=== PATIENT | male | born 1980 | race Two or more races ===

== ENCOUNTER 2024-12-24 11:11 | Emergency (ER) | payer MEDICAID, SELFPAY ==
[2024-12-24 11:12] VITALS: BMI 30.4
[2024-12-24 11:34] VITALS: BP 166/81; PULSE 99; RESP 17; TEMP 36.8; O2SAT 96
--- NOTE | 2024-12-24 11:34 | XR_ITS ---
Examination: CT abdomen with intravenous contrast CT pelvis with intravenous contrast 2-D coronal reconstructions 2-D sagittal reconstructions Date and time of exam: December 24, 2024, 1434 hours INDICATIONS: Onset rectal pain today. CTDI: vol (mGy) 12.8 DLP: (mGycm) 867 Technique: Multiple axial sections of the abdomen and pelvis have been obtained. 64 slice high-resolution scanner used. 3 mm axial sections have been obtained, post intravenous injection 60 cc [id number] 2-D sagittal, coronal reconstructions obtained. Low dose protocols were performed. One or more of the following dose reduction techniques were used; automated exposure control, adjustment of the mA and/or KV according to patient size, use of iterative reconstruction technique. Findings: No focal liver or splenic lesions No gallstones No pancreatic or adrenal mass No renal or ureteral calculi, no hydronephrosis Aorta normal size Normal appendix No bowel obstruction or diverticulitis Severe thickening of the rectal wall and severe inflammatory change surrounding the rectum No prostatomegaly Contracted urinary bladder IMPRESSION: Pronounced thickening of the rectal wall and severe inflammatory change surrounding the rectum most consistent with proctitis but clinical correlation and follow-up advised, including direct inspection of the rectum
--- NOTE | 2024-12-24 11:35 | PD.EDADULT ---
ED General RME/HPI General Chief complaint: General Adult/Misc Complain Stated complaint: CONSTIPATION X2 DAYS; RECTAL PAIN Time Seen by Provider: 12/24/24 11:24 Arrival date/time: 12/24/24 11:11 44-year-old male patient with no past medical history, came in for evaluation regarding rectal pain. Patient been complaining of worsening rectal pain, for the last 2 days, described as dull ache, severity moderate. Patient denies any diarrhea or constipation denies any abdominal pain denies any vomiting denies any fever denies any similar episode in the past denies any other complaints no medication was taken prior to ER visit. Related Data Previous Rx's ?Medication ?Instructions ?Recorded ciprofloxacin HCl 500 mg tablet 500 mg PO BID #20 tabs 12/24/24 (Cipro) docusate sodium 100 mg capsule 100 mg PO BID #20 caps 12/24/24 (Colace) hydrocortisone 100 mg/60 mL enema 100 mg (60 mL) [place] QDAY 2 weeks 12/24/24 #840 mL Allergies Allergy/AdvReac Type Severity Reaction Status Date / Time No Known Allergies Allergy Verified 12/24/24 11:18 Review of Systems Review of Systems Narrative Review of Systems: Review of system reviewed and within normal limits except mentioned in HPI ED Exam Narrative Physical exam: VITAL SIGNS: Reviewed. GENERAL APPEARANCE: Alert and interactive, follows commands, no acute distress, HEAD AND FACE: Non-traumatic. ENT: PERRL, pink conjunctivitis, eyelid no trauma, Mucous membrane moist. NECK: Supple, nontender, no nuchal rigidity. CHEST: No tenderness, no crepitus, no paradoxical movement, no retractions. LUNGS: Clear, well ventilated, symmetric, no rales, no wheezing, no ronchi, no stridor, good breath sounds bilaterally. HEART: Regular rate, regular rhythm, no murmur, no gallops. ABDOMEN: Soft, positive bowel sounds, nondistended, no guarding, nontender, no rebound, no masses, RECTAL: Rectal exam was done by me with a female nurse around all the time, I did not notice any swelling or redness in the CLARA rectal area, however a tender palpable mass noted at 12 o'clock position noted, nonthrombosed GENITAL: Deferred. NEUROLOGICAL: Gross motor function intact sensory function intact, Appropriate for age. MUSCULOSKELETAL: low back nontender, full range of motion. EXTREMITIES: Nontender, full range of motion. SKIN: Color pink, dry, no rash, no lacerations, no abrasions, no contusions. LYMPHATICS: Deferred. Course Quality Measures none Orders Category Date Time Status CT Screening NOW Care 12/24/24 11:[address] abdomen pelvis w con Stat Exams 12/24/24 11:34 Completed CBC [CBC] Stat Lab 12/24/24 11:40 Completed CMP [Comprehensive Metabolic Panel] Stat Lab 12/24/24 11:40 Completed UA, C/S IF [Urinalysis, C/S if Indicated] Stat Lab 12/24/24 13:13 Completed Ciprofloxacin HCl [Ciprofloxacin] Med 12/24/24 16:35 Discontinued 500 mg PO X1 ONE Ketorolac Inj [Toradol Inj] Med 12/24/24 11:37 Discontinued 30 mg IVP X1 ONE Lidocaine Jelly 2% Urojet [Xylocaine Jelly 2% Urojet] Med 12/24/24 11:37 Discontinued See Dose Instructions TOP X1 ONE Vital Signs Vital signs: Vital Signs Temperature 98.3 F 12/24/24 11:34 Pulse Rate 99 12/24/24 11:34 Respiratory Rate 17 12/24/24 11:34 Blood Pressure 166/81 H 12/24/24 11:34 Pulse Oximetry (%) 96 12/24/24 11:34 Oxygen Delivery Method Room Air 12/24/24 11:34 Discharge Plan Plan Patient Disposition: HOME (Self Care) Discharge Disposition comment: Stable Prescriptions/Referrals Prescriptions/Med Rec: New ciprofloxacin HCl [Cipro] 500 mg tablet 500 mg PO BID Qty: 20 0RF hydrocortisone 100 mg/60 mL enema 100 mg [place] QDAY 14 Days Qty: 840 0RF docusate sodium [Colace] 100 mg capsule 100 mg PO BID Qty: 20 0RF Referrals: No Primary/Family,Physician [Primary Care Provider] - In 1 week Problem List Clinical Impression: Pain, rectum, Proctitis Patient/Caregiver Discharge Instructions Discharge Activity: activity as tolerated Education Materials: Anatomy of the Digestive System Additional Instructions: Thank you for the opportunity for serving you today. You are stable for discharged . You are advised to: Follow-up with your PCP in 1 to 2 days Return to emergency room in 1 week for reevaluation regarding your rectal pain Return to ED for worsening of symptoms Increase oral fluids Take medication as prescribed Increase fiber in the diet As your PCP to workup you on your hyperglycemia today. I suspect you might be having diabetes mellitus Print Language: Macedonian Stand Alone Forms: Atiya Award Info., Patient Portal Info Letter MDM Narrative MDM hospital course (for use when minimal MDM required): 12/24/24 11:11 44-year-old male patient with no past medical history, came in for evaluation regarding rectal pain. Patient been complaining of worsening rectal pain, for the last 2 days, described as dull ache, severity moderate. Patient denies any diarrhea or constipation denies any abdominal pain denies any vomiting denies any fever denies any similar episode in the past denies any other complaints no medication was taken prior to ER visit. Patient CBC shows leukocytosis of 16,000, there is of the labs unremarkable. This except for blood sugar of 293. Urinalysis no UTI CT scan of the abdomen pelvis showed Pronounced thickening of the rectal wall and severe inflammatory change surrounding the rectum most consistent with proctitis but clinical correlation and follow-up advised, including direct inspection of the rectum Patient was also advised to follow-up with PCP for elevated blood sugar today. Patient needs to have fasting blood sugar, hemoglobin A1c done outpatient. Patient agrees with the plan I spoke with GI specialist, Dr. Adams, who advised me to start the patient on Cipro and hydrocortisone enema and return to emergency room in 1 week for reevaluation. There is no indication to admit the patient today. Medication Administration(s) Medication Administration History Discontinued Medications Ciprofloxacin (Ciprofloxacin Hcl 250 Mg Tablet) 500 mg PO X1 ONE Stop: 12/24/24 16:36 Ketorolac Tromethamine (Ketorolac Inj 30 Mg/Ml Vial) 30 mg IVP X1 ONE Stop: 12/24/24 11:38 Last Admin: 12/24/24 13:54 Dose: 30 mg Documented By: GM Lidocaine HCl (Lidocaine Jelly 2% (Urojet) 10 Ml Tube) 0 ml TOP X1 ONE Stop: 12/24/24 11:38 Last Admin: 12/24/24 13:59 Dose: 10 ml Documented By: GM Comments: GIVE MED THROUGH RECTUM, PER [employer]INEER. Diagnosis Differential Diagnosis ED Complaint MDM: Rectal pain, rectal abscess, proctitis Diagnoses ruled out and/or further discussions: Proctitis
[2024-12-24 12:12] LABS: Basophils # (Auto) 0.1 Thou/mm3 (0.0-0.2); Basophils % (Auto) 0 % (0-2.5); Eosinophils # (Auto) 0.0 Thou/mm3 (0.0-0.5); Eosinophils % (Auto) 0 % (0-10); Hematocrit 43.4 % (41.0-53.0); Hemoglobin 15.1 g/dL (13.5-16.0); Immature Granulocytes Auto 0.10 Thou/mm3 (0.00-0.00); Lymphocytes # (Auto) 1.7 Thou/mm3 (1.0-4.8); Lymphocytes % (Auto) 10 % (10-50); Mean Corpuscular HGB Conc 34.8 g/dl (31.0-37.0); Mean Corpuscular Hemoglobin 27.5 pg (25.0-35.0); Mean Corpuscular Volume 79 fL (80-100); Monocytes # (Auto) 0.9 Thou/mm3 (0.0-0.8); Monocytes % (Auto) 5 % (0-12); Neutrophils # (Auto) 13.6 Thou/mm3 (1.8-7.7); Neutrophils % (Auto) 84 % (37-80); Nucleated Red Blood Cell # 0.00 Thou/mm3 (0.00-0.00); Nucleated Red Blood Cell % 0 /100 WBC (0); Platelet Count 188 Thou/mm3 (140-440); RDW Standard Deviation 34.8 fL (35.1-43.9); Red Blood Count 5.50 Miln/mm3 (4.50-5.90); White Blood Count 16.2 Thou/mm3 (3.8-10.6)
[2024-12-24 12:28] LABS: Alanine Aminotransferase 308 U/L (10-49); Albumin, Serum 4.9 gm/dL (3.5-5.0); Albumin/Globulin Ratio 1.4 (1.2-2.2); Alkaline Phosphatase 114 U/L (46-116); Anion Gap 9 (7-16); Aspartate Amino Transferase 110 U/L (0-34); BUN/Creatinine Ratio 10 Ratio (12-20); Bilirubin,Total 1.1 mg/dL (0.3-1.2); Blood Urea Nitrogen 7 mg/dL (9-23); Calcium 9.9 mg/dL (8.3-10.6); Calcium (Corrected) 9.9 mg/dL (8.5-10.1); Carbon Dioxide 24.6 mMol/L (20.0-31.0); Chloride 98 mMol/L (98-107); Creatinine (Component) 0.7 mg/dL (0.6-1.3); Estimated Creatinine Clearance 145.8 mL/min (>60); Globulin 3.6 gm/dL (2.3-3.5); Glucose 293 mg/dL (74-106); Osmolality,Calculated 273 (275-295); Potassium 3.9 mMol/L (3.4-5.1); Sodium 132 mMol/L (136-145); Total Protein 8.5 gm/dL (5.7-8.2); eGFR > 60 See Note
[2024-12-24 13:21] LABS: Collection Type, Urine Clean Catch; Squamous Epithelial Cell,Urine 0 /hpf (0-5)
[2024-12-24 13:39] LABS: Bilirubin,Urine Negative (Negative); Blood,Urine Negative (Negative); Clarity,Urine Clear (Clear/Hazy); Color,Urine Yellow (Lt Yel-Yel); Culture Indicated,Urine Not Indicated; Glucose, Urine 4+ (Negative); Ketones,Urine 1+ (Negative); Leukocyte Esterase,Urine Negative (Negative); Nitrite,Urine Negative (Negative); PH,Urine 6.5 (5.0-7.0); Protein,Urine 2+ (Neg - Trace); RBC,Urine 6 /hpf (0-3); Urobilinogen,Urine 4.0 mg/dL (0.0-1.0); WBC,Urine 1 /hpf (0-5)
[2024-12-24 13:42] LABS: Specific Gravity,Urine 1.010 (1.001-1.035)
[2024-12-24] MEDS: KETOROLAC INJ 30 MG/ML VIAL IVP (13:54)
[2024-12-24] MEDS: LIDOCAINE JELLY 2% (Urojet) 10 ML TUBE TOP (13:59)
[2024-12-24] MEDS: CIPROFLOXACIN HCL 250 MG TABLET 500 MG PO (17:04)
== END 2024-12-24 17:20 | disposition home or self-care (01) ==
PROVIDERS: Nurse Practitioner Family; Emergency Provider Family Medicine
DX: K62.89 Other specified diseases of anus and rectum (principal)
CPT/HCPCS: 36415; 74177; 80053; 81001; 85025; 96374; 99283; A4649; J1885; Q9967; A9270

== ENCOUNTER 2024-12-27 18:16 | Emergency (ER) | payer MEDICAID, SELFPAY ==
[2024-12-27 18:33] VITALS: BP 171/98; PULSE 89; RESP 18; TEMP 36.8; O2SAT 96; BMI 33.0
--- NOTE | 2024-12-27 19:06 | XR_ITS ---
Examination: CT abdomen with intravenous contrast CT pelvis with intravenous contrast 2-D coronal reconstructions 2-D sagittal reconstructions Date and time of exam: December 27, 2024, 1958 hours, comparison December 24, 2024 INDICATIONS: Rectal pain this week, pronounced thickening of the rectal wall and severe inflammatory change surrounding the rectum on December 24, 2024 CT study. CTDI: vol (mGy) 12.5 DLP: (mGycm) 916 Technique: Multiple axial sections of the abdomen and pelvis have been obtained. 64 slice high-resolution scanner used. 3 mm axial sections have been obtained, post intravenous injection 60 cc Isovue-370 2-D sagittal, coronal reconstructions obtained. Low dose protocols were performed. One or more of the following dose reduction techniques were used; automated exposure control, adjustment of the mA and/or KV according to patient size, use of iterative reconstruction technique. Findings: No focal liver or splenic lesions No gallstones No pancreatic or adrenal mass No renal or ureteral calculi, no hydronephrosis Normal appendix No bowel obstruction There is again noted prominent rectal wall thickening although less perirectal inflammatory change Suspicious for early perianal abscess 20 x 12 mm IMPRESSION: Again noted is prominent rectal wall thickening although less perirectal inflammatory change compared to December 24, 2024 Current study is suspicious for 20 x 12 mm perianal abscess
--- NOTE | 2024-12-27 19:07 | PD.EDRME ---
Rapid Medical Screening Exam RME Arrival date/time: 12/27/24 18:16 This is a case of 44-year-old male who came into the emergency room due to rectal pain patient have history of hemorrhoid patient states that he felt some lump on the rectal area with some redness and swelling patient is also complaining of painful urination Chief Complaint: General Adult/Misc Complain Time Seen by Provider: 12/27/24 18:31 Vital signs: Vital Signs Temperature 98.3 F 12/27/24 18:33 Pulse Rate 89 12/27/24 18:33 Respiratory Rate 18 12/27/24 18:33 Blood Pressure 171/98 H 12/27/24 18:33 Pulse Oximetry (%) 96 12/27/24 18:33 Oxygen Delivery Method Room Air 12/27/24 18:33 Exam: Patient noted to have 2 to 3 cm lump redness swelling suggestive of abscess abdominal exam is benign nonsurgical no guarding or rebound no rigidity Clinical Impression: Rectal abscess dysuria
--- NOTE | 2024-12-27 19:33 | EDNOTE_ITS ---
ED General RME/HPI General Chief complaint: General Adult/Misc Complain Stated complaint: RECTAL PAIN HX HEMMORHOIDS AND RECTAL INFLAMMATION Time Seen by Provider: 12/27/24 18:31 Arrival date/time: 12/27/24 18:16 44-year-old male patient with no past medical history came in for evaluation regarding rectal pain and swelling. Patient was seen in this emergency room a week ago, CT scan of the abdomen and pelvis during that time was done and showed severe proctitis. Patient was started on Cipro and hydrocortisone enema. Patient been compliant with medication however according to the patient he noticed some swelling and redness to the 10 o'clock position of the perianal area. Getting worse, described as dull ache, symptom moderate. Also complained of dysuria. No fever noted no abdominal noted. Last visit patient was noted to have a blood sugar of 200+, advised the patient to follow-up with PCP for diabetes mellitus workup however patient did not follow-up with PCP. RME / HPI RME / HPI narrative: 12/27/24 18:16 This is a case of 44-year-old male who came into the emergency room due to rectal pain patient have history of hemorrhoid patient states that he felt some lump on the rectal area with some redness and swelling patient is also complaining of painful urination Exam: Patient noted to have 2 to 3 cm lump redness swelling suggestive of abscess abdominal exam is benign nonsurgical no guarding or rebound no rigidity Impression: Rectal abscess dysuria Related Data Previous Rx's ?Medication ?Instructions ?Recorded ciprofloxacin HCl 500 mg tablet 500 mg PO BID #20 tabs 12/24/24 (Cipro) docusate sodium 100 mg capsule 100 mg PO BID #20 caps 12/24/24 (Colace) hydrocortisone 100 mg/60 mL enema 100 mg (60 mL) [place] QD AY 2 weeks 12/24/24 #840 mL amoxicillin 875 mg-potassium 1 tab PO BID #20 tabs clavulanate 125 mg tablet metformin 500 mg tablet 500 mg PO BIDWMEAL #60 tabs 12/27/24 Allergies Allergy/AdvReac Type Severity Reaction Status Date / Time No Known Allergies Allergy Verified 12/27/24 18:20 Review of Systems Review of Systems Narrative Review of Systems: Review of system reviewed and within normal limits except mentioned in HPI ED Exam Narrative Physical exam: VITAL SIGNS: Reviewed. GENERAL APPEARANCE: Alert and interactive, follows commands, no acute distress, HEAD AND FACE: Non-traumatic. ENT: PERRL, pink conjunctivitis, eyelid no trauma, Mucous membrane moist. NECK: Supple, nontender, no nuchal rigidity. CHEST: No tenderness, no crepitus, no paradoxical movement, no retractions. LUNGS: Clear, well ventilated, symmetric, no rales, no wheezing, no ronchi, no stridor, good breath sounds bilaterally. HEART: Regular rate, regular rhythm, no murmur, no gallops. ABDOMEN: Soft, positive bowel sounds, nondistended, no guarding, nontender, no rebound, no masses, RECTAL: Tenderness to the rectal area, swelling and redness to the 10 o'clock position of the anal area, fluctuant no active bleeding noted GENITAL: Deferred. NEUROLOGICAL: Gross motor function intact sensory function intact, Appropriate for age. MUSCULOSKELETAL: low back nontender, full range of motion. EXTREMITIES: Nontender, full range of motion. SKIN: Color pink, dry, no rash, no lacerations, no abrasions, no contusions. LYMPHATICS: Deferred. Course Quality Measures none Orders Category Date Time Status CT Screening NOW Care 12/27/24 19:[address] abdomen pelvis w con Stat Exams 12/27/24 19:06 Completed CBC Stat Lab 12/27/24 19:06 Completed CMP [Comprehensive Metabolic Panel] Stat Lab 12/27/24 19:21 Completed Hemoglobin A1C [Glycohemoglobin w (eAG)] Stat Lab 12/27/24 19:21 Completed Lactate (Lactic Acid) Stat Lab 12/27/24 20:11 Completed PTT [Partial Thromboplastin Time] Stat Lab 12/27/24 19:21 Completed Urinalysis Stat Lab 12/27/24 19:41 Completed Lidocaine 1% 20 ml [Xylocaine 1% 20 ML] Med 12/27/24 20:50 Discontinued 20 ml INFL X1 ONE Piper/Tazo 3.375 gm Premix [Zosyn] Med 12/27/24 19:30 Discontinued 3.375 gm in 50 ml IV X1 Vital Signs Vital signs: Vital Signs Temperature 98.3 F 12/27/24 18:33 Pulse Rate 89 12/27/24 18:33 Respiratory Rate 18 12/27/24 18:33 Blood Pressure 171/98 H 12/27/24 18:33 Pulse Oximetry (%) 96 12/27/24 18:33 Oxygen Delivery Method Room Air 12/27/24 18:33 PROCEDURES: Abscess I/D Site: other (Perianal) Sedation/analgesia: none Local Anesthetic: lidocaine 1% Amount of anesthesia used (mL): 5 Technique: incised with #11 blade Amount of fluid expressed (mL): 3 Irrigation: Yes Packing used?: plain Complications: pain Discharge Plan Plan Patient Disposition: HOME (Self Care) Discharge Disposition comment: Stable Prescriptions/Referrals Prescriptions/Med Rec: New amoxicillin-pot clavulanate 875-125 mg tablet 1 tab PO BID Qty: 20 0RF metformin 500 mg tablet 500 mg PO BIDWMEAL Qty: 60 0RF No Action ciprofloxacin HCl [Cipro] 500 mg tablet 500 mg PO BID Qty: 20 0RF hydrocortisone 100 mg/60 mL enema 100 mg [place] QDAY 14 Days Qty: 840 0RF docusate sodium [Colace] 100 mg capsule 100 mg PO BID Qty: 20 0RF Problem List Clinical Impression: Abscess, perianal, Newly diagnosed diabetes Patient/Caregiver Discharge Instructions Discharge Activity: activity as tolerated Education Materials: Diabetes: Meal Planning, ED ABSCESS Dora-Anal IandD Additional Instructions: Thank you for the opportunity for serving you today. You are stable for discharged . You are advised to: Follow-up with your PCP in 1 to 2 days Return to ED for worsening of symptoms Increase oral fluids Take medication as prescribed Remove the packing in 2 days Continue daily dressing as needed Please follow-up with your PCP next week regarding your diabetes mellitus, new diagnosis. Please avoid eating rice, fast, bread, drinking soda especially with sugar. Print Language: Omani Stand Alone Forms: Atiya Award Info., Patient Portal Info Letter PA/[employer]KER Supervising Physician SARAH/[employer] Supervising Physician: MD Ahmet MDM Narrative MDM hospital course (for use when minimal MDM required): 44-year-old male patient with no past medical history came in for evaluation regarding rectal pain and swelling. Patient was seen in this emergency room a week ago, CT scan of the abdomen and pelvis during that time was done and showed severe proctitis. Patient was started on Cipro and hydrocortisone enema. Patient been compliant with medication however according to the patient he noticed some swelling and redness to the 10 o'clock position of the perianal area. Getting worse, described as dull ache, symptom moderate. Also complained of dysuria. No fever noted no abdominal noted. Last visit patient was noted to have a blood sugar of 200+, advised the patient to follow-up with PCP for diabetes mellitus workup however patient did not follow-up with PCP. Patient's laboratory workup did not show any leukocytosis however abnormality noted for hemoglobin A1c which is 12.3 blood sugar was noted to be 306. CT scan of the abdomen pelvis showed Again noted is prominent rectal wall thickening although less perirectal inflammatory change compared to December 24, 2024 Current study is suspicious for 20 x 12 mm perianal abscess patient will be started on metformin 500 mg twice daily, and I added antibiotic Augmentin twice a day. Incision and drainage was done by me see procedure notes Patient was advised to closely follow-up with PCP regarding new diagnosis of diabetes mellitus. Patient agrees with the plan. I also advised him to remove the packing in 2 days. Continue daily dressing also follow-up with PCP regarding the perianal abscess to monitor for healing or worsening. Patient agrees with the plan Imaging Imaging Interpretation(s): See above Medication Administration(s) Medication Administration History Discontinued Medications Piperacillin/Tazobactam/Dextrose (Zosyn) 3.375 gm in 50 mls @ 100 mls/hr IV X1 ONE; Protocol Stop: 12/27/24 19:59 Last Infusion: 12/27/24 20:14 Dose: Infused Documented By: Admin: 12/27/24 19:43 Dose: 100 mls/hr Documented By: HUBER Lidocaine HCl (Lidocaine Hcl 1% 20 Ml Vial) 20 ml INFL X1 ONE Stop: 12/27/24 20:51 Last Admin: 12/27/24 21:11 Dose: 20 ml Documented By: HUBER Comments: ADMIN BY PROVIDER Diagnosis Differential Diagnosis ED Complaint MDM: Pararectal abscess perianal abscess, proctitis, new diagnosis diabetes sherry Diagnoses ruled out and/or further discussions: Perianal abscess
[2024-12-27 19:37] LABS: Basophils # (Auto) 0.0 Thou/mm3 (0.0-0.2); Basophils % (Auto) 0 % (0-2.5); Eosinophils # (Auto) 0.1 Thou/mm3 (0.0-0.5); Eosinophils % (Auto) 1 % (0-10); Hematocrit 43.5 % (41.0-53.0); Hemoglobin 15.1 g/dL (13.5-16.0); Immature Granulocytes Auto 0.06 Thou/mm3 (0.00-0.00); Lymphocytes # (Auto) 2.4 Thou/mm3 (1.0-4.8); Lymphocytes % (Auto) 23 % (10-50); Mean Corpuscular HGB Conc 34.7 g/dl (31.0-37.0); Mean Corpuscular Hemoglobin 27.8 pg (25.0-35.0); Mean Corpuscular Volume 80 fL (80-100); Monocytes # (Auto) 1.0 Thou/mm3 (0.0-0.8); Monocytes % (Auto) 10 % (0-12); Neutrophils # (Auto) 7.0 Thou/mm3 (1.8-7.7); Neutrophils % (Auto) 66 % (37-80); Nucleated Red Blood Cell # 0.00 Thou/mm3 (0.00-0.00); Nucleated Red Blood Cell % 0 /100 WBC (0); Platelet Count 213 Thou/mm3 (140-440); RDW Standard Deviation 34.4 fL (35.1-43.9); Red Blood Count 5.44 Miln/mm3 (4.50-5.90); White Blood Count 10.6 Thou/mm3 (3.8-10.6)
[2024-12-27 19:39] VITALS: BP 158/96; PULSE 79; RESP 18; O2SAT 97
[2024-12-27] MEDS: PIPER/TAZO 3.375 GM PREMIX 3.375 GM/50 ML BAG IV (19:43)
[2024-12-27 19:48] LABS: Collection Type, Urine Voided; Squamous Epithelial Cell,Urine 0 /hpf (0-5)
[2024-12-27 19:54] LABS: Bilirubin,Urine Negative (Negative); Blood,Urine Negative (Negative); Clarity,Urine Clear (Clear/Hazy); Color,Urine Lt-Yellow (Lt Yel-Yel); Glucose, Urine 4+ (Negative); Ketones,Urine Negative (Negative); Leukocyte Esterase,Urine Negative (Negative); Nitrite,Urine Negative (Negative); PH,Urine 6.5 (5.0-7.0); Protein,Urine Trace (Neg - Trace); RBC,Urine 1 /hpf (0-3); Specific Gravity,Urine 1.022 (1.001-1.035); Urobilinogen,Urine 2.0 mg/dL (0.0-1.0); WBC,Urine < 1 /hpf (0-5)
[2024-12-27 20:00] LABS: Alanine Aminotransferase 248 U/L (10-49); Albumin, Serum 4.7 gm/dL (3.5-5.0); Albumin/Globulin Ratio 1.3 (1.2-2.2); Alkaline Phosphatase 111 U/L (46-116); Anion Gap 11 (7-16); Aspartate Amino Transferase 206 U/L (0-34); BUN/Creatinine Ratio 11 Ratio (12-20); Bilirubin,Total 0.5 mg/dL (0.3-1.2); Blood Urea Nitrogen 9 mg/dL (9-23); Calcium 9.8 mg/dL (8.3-10.6); Calcium (Corrected) 9.8 mg/dL (8.5-10.1); Carbon Dioxide 24.5 mMol/L (20.0-31.0); Chloride 98 mMol/L (98-107); Creatinine (Component) 0.8 mg/dL (0.6-1.3); Estimated Creatinine Clearance 141.1 mL/min (>60); Globulin 3.5 gm/dL (2.3-3.5); Glucose 227 mg/dL (74-106); Osmolality,Calculated 272 (275-295); Potassium 4.4 mMol/L (3.4-5.1); Sodium 133 mMol/L (136-145); Total Protein 8.2 gm/dL (5.7-8.2); eGFR > 60 See Note
[2024-12-27 20:04] LABS: Partial Thromboplastin Time 29.3 Seconds (22.0-36.0)
[2024-12-27 20:25] LABS: Lactate (Lactic Acid) 1.3 mMol/L (0.4-2.0)
[2024-12-27] MEDS: LIDOCAINE HCL 1% 20 ML VIAL INFL (21:11)
[2024-12-27 21:14] LABS: Glucose Estimated Average 306 mg/dL (80-131); Hemoglobin A1C 12.3 % Hgb (4.8-6.0)
[2024-12-27 21:30] VITALS: BP 158/96; PULSE 71; RESP 18; O2SAT 96
== END 2024-12-27 21:30 | disposition home or self-care (01) ==
LOC: SERX 21:37
PROVIDERS: Nurse Practitioner Family; Emergency Provider Emergency Medicine
DX: K61.2 Anorectal abscess (principal); E11.9 Type 2 diabetes mellitus without complications
CPT/HCPCS: 10060; 36415; 74177; 80053; 81001; 83036; 83605; 85025; 85730; 96365; 99283; A4649; J2543; J3490; Q9967